=== PATIENT | female | born 1950 | race Caucasian/White ===

== ENCOUNTER 2017-07-08 01:21 | Inpatient (IN) | payer MEDICAID ==
[~2017-07-08] VITALS: Ht 152.4 cm; Wt 54.9 kg
[2017-07-08] VITALS (57 sets, daily range): BP systolic 71–95; BP diastolic 28–58
[~2017-07-08 01:21] MED LIST: ACET-1465 PO; AMLO5TAB4 PO; CHOL20004 PO; DARU800T PO; DOCU-100 PO; EMTR1TAB12 PO; FERR325T6 PO; FURO40TA5 PO; POLY15DR55 OP; RALT400T PO; RITO100T PO
[2017-07-08] MEDS ORDERED: ASPIRIN 81MG TABLET PO ONE (01:30)
[2017-07-08] MEDS ORDERED: NITROGLYCERIN OINT 1GM/INCH UDPKT TD ONE (01:30)
[2017-07-08] MEDS ORDERED: MAGNESIUM 2 G PREMIX 50 ML IV ONE (01:30)
[2017-07-08] MEDS ORDERED: IPRATROPIUM BROMIDE (0.02%) 0.5MG/2.5ML NEB HHN STA (01:30)
[2017-07-08] MEDS ORDERED: ALBUTEROL (0.083%) 2.5MG/3ML NEB HHN STA (01:30)
[2017-07-08] MEDS ORDERED: METHYLPREDNISOLONE SOD SUCC 125 MG/2 ML VIAL IV STA (01:30)
[2017-07-08] MEDS ORDERED: ALBUTEROL (0.083%) 2.5MG/3ML NEB HHN SCH ×2 (02:05→12:00)
[2017-07-08 02:51] LABS: BG BASE EXCESS -8.2 mmol/L (-2.0-2.0); BG CARBOXYHEMOGLOBIN 0.8 % (0.5-1.5); BG DEOXYHEMOGLOBIN 0.2 % (0.0-5.0); BG FRACTION INSPIRED OXYGEN 100; BG HCO3 ACT 16.1 mmol/L (22.0-26.0); BG METHEMOGLOBIN 0.6 % (0.0-1.5); BG OXYHEMOGLOBIN 98.4 % (94.0-97.0); BG PCO2 27.6 mmHg (35.0-45.0); BG PH 7.385 (7.350-7.450); BG PO2 233.7 mmHg (75.0-100.0); BG SAMPLE SITE RIGHT BRACHIAL; BG TOTAL HEMOGLOBIN 5.9 g/dL (12.0-18.0); BG VENT MODE MASK - NRB
[2017-07-08 03:58] LABS: INR 1.2; PROTHROMBIN TIME 12.7 sec (9.4-11.6)
[2017-07-08 03:59] LABS: MEAN CORPUSCULAR HEMOGLOBIN 29.1 pg (28.0-32.0); MEAN CORPUSCULAR VOLUME 91.4 fL (81.0-99.0); MEAN PLATELET VOLUME 9.4 fl (7.4-10.4); PLATELET 102 x1000/uL (130-400); RED BLOOD CELL COUNT 1.83 mill/uL (4.2-5.4); RED CELL DISTRIBUTION WIDTH 19.4 % (11.6-14.6)
[2017-07-08] MEDS ORDERED: HYDROCODONE/ACETAMINOPHEN 10/325MG TABLET PO ONE (04:00)
[2017-07-08] MEDS ORDERED: AZITHROMYCIN 500 MG in DEXT 5% WATER 250 ML IV ONE (04:00)
[2017-07-08] MEDS ORDERED: CEFTRIAXONE 1 G PREMIX 50 ML IV ONE (04:00)
[2017-07-08 04:05] LABS: HEMOGLOBIN. 5.3 g/dL (12.0-16.0)
[2017-07-08 04:06] LABS: HEMATOCRIT. 16.7 % (36.0-48.0)
[2017-07-08 04:19] LABS: PLATELET ESTIMATE SLIGHTLY DECREASED
[2017-07-08] MEDS ORDERED: SODIUM CHLORIDE 0.9% 1,000 ML IV ONE (04:31)
[2017-07-08 05:11] LABS: CHLORIDE 102 mEq/L (98-107)
[2017-07-08 05:14] LABS: ETHANOL BLOOD < 10 mg/dL
[2017-07-08] MEDS ORDERED: SODIUM CHLORIDE 0.9% 1000ML BAG (SEPSIS BOLUS) IV ONE (05:30)
[2017-07-08] MEDS ORDERED: MAGNESIUM/ALUMINUM HYDROXIDE/SIMETHICONE 30ML UDC PO PRN (07:45)
[2017-07-08] MEDS ORDERED: ACETAMINOPHEN 650MG/20.3ML UDC GT PRN (07:45)
[2017-07-08] MEDS ORDERED: ACETAMINOPHEN 650MG SUPP PR PRN (07:45)
[2017-07-08] MEDS ORDERED: GUAIFENESIN 200MG/10ML SUGAR FREE UDC PO PRN (07:45)
[2017-07-08] MEDS ORDERED: HYDROCODONE/ACETAMINOPHEN 5/325MG TABLET PO PRN (07:45)
[2017-07-08] MEDS ORDERED: ONDANSETRON HCL 4MG/2ML VIAL IV PRN (07:45)
[2017-07-08] MEDS ORDERED: CLONIDINE 0.1MG TABLET PO PRN (07:45)
[2017-07-08] MEDS: METHYLPREDNISOLONE SOD SUCC 40 MG/ML VIAL IV SCH ×2 (08:42→22:29)
[2017-07-08] MEDS: ACETAMINOPHEN 325MG TABLET PO PRN ×2 (08:43→09:45)
[2017-07-08] MEDS ORDERED: IPRATROPIUM/ALBUTEROL 0.5-3(2.5)MG/3ML NEB HHN ONE (08:45)
[2017-07-08] MEDS ORDERED: PANTOPRAZOLE SODIUM 40 MG/VIAL IV SCH (09:00)
[2017-07-08] MEDS ORDERED: DOCUSATE SODIUM 100MG CAPSULE PO PRN (09:00)
[2017-07-08] MEDS ORDERED: NA PHOS,M-B/NA PHOS,DI-BA ENEMA 118ML PR PRN (09:30)
[2017-07-08] MEDS: DIPHENHYDRAMINE 50MG/ML VIAL IV PRN (09:45)
[2017-07-08 10:02] LABS: CHLORIDE 102 mEq/L (98-107)
[2017-07-08 10:08] LABS: TOTAL IRON BINDING CAPACITY 344 ug/dL (250-450)
[2017-07-08 10:59] LABS: VITAMIN B12 SERUM 1474 pg/mL (211-911)
[2017-07-08] MEDS ORDERED: PROPOFOL 10MG/ML 100ML 100 ML IV PRN (11:00)
[2017-07-08] MEDS: FUROSEMIDE 40MG/4ML VIAL IVP SCH (11:15)
[2017-07-08 12:48] LABS: BG BASE EXCESS -28.6 mmol/L (-2.0-2.0); BG CARBOXYHEMOGLOBIN 0.6 % (0.5-1.5); BG DEOXYHEMOGLOBIN 2.8 % (0.0-5.0); BG FRACTION INSPIRED OXYGEN 65; BG HCO3 ACT 3.7 mmol/L (22.0-26.0); BG METHEMOGLOBIN 0.6 % (0.0-1.5); BG PCO2 23.9 mmHg (35.0-45.0); BG PH 6.808 (7.350-7.450); BG PO2 146.4 mmHg (75.0-100.0); BG SAMPLE SITE RIGHT BRACHIAL; BG TIDAL VOLUME(mL) 550 mL; BG TOTAL HEMOGLOBIN 7.4 g/dL (12.0-18.0); BG VENT MODE VENT - A/C; BG VENT RATE 14 set
[2017-07-08] MEDS ORDERED: SODIUM BICARBONATE 8.4% 1 MEQ/ML 50ML SYR IV ONE ×4 (13:14→17:30)
[2017-07-08] MEDS ORDERED: SODIUM BICARBONATE 8.4% 1 MEQ/ML 50ML SYR IV NR ×2 (13:30→20:15)
[2017-07-08] MEDS ORDERED: LEVOFLOXACIN 500MG PREMIX 100 ML IV SCH (14:00)
[2017-07-08] MEDS ORDERED: SODIUM BICARBONATE 100 MEQ in DEXTROSE 5% WATER 1,000 ML IV SCH (14:00)
[2017-07-08] MEDS: NOREPINEPHRINE 16 MG in DEXT 5% WATER 484 ML IV PRN (14:12)
[2017-07-08 14:45] LABS: BG BASE EXCESS -25.5 mmol/L (-2.0-2.0); BG CARBOXYHEMOGLOBIN 0.5 % (0.5-1.5); BG DEOXYHEMOGLOBIN 9.7 % (0.0-5.0); BG FRACTION INSPIRED OXYGEN 60; BG HCO3 ACT 5.6 mmol/L (22.0-26.0); BG METHEMOGLOBIN 0.5 % (0.0-1.5); BG OXYGEN SATURATION 90.2 % (92.0-98.5); BG OXYHEMOGLOBIN 89.3 % (94.0-97.0); BG PCO2 29.8 mmHg (35.0-45.0); BG PH 6.893 (7.350-7.450); BG SAMPLE SITE RIGHT BRACHIAL; BG TIDAL VOLUME(mL) 550 mL; BG TOTAL HEMOGLOBIN 7.4 g/dL (12.0-18.0); BG VENT MODE VENT - A/C; BG VENT RATE 14 set
[2017-07-08] MEDS ORDERED: ALBUMIN HUMAN 25GM/100ML (25%) IV NR ×2 (14:45→21:03)
[2017-07-08] MEDS ORDERED: ETOMIDATE 2MG/ML 10ML VIAL IV ONE (14:59)
[2017-07-08] MEDS ORDERED: NORMAL SALINE 0.9% 10 ML SYR ONE (14:59)
[2017-07-08] MEDS ORDERED: SUCCINYLCHOLINE CHLORIDE 200MG/10ML VIAL IV ONE (14:59)
[2017-07-08] MEDS: IPRATROPIUM/ALBUTEROL 0.5-3(2.5)MG/3ML NEB HHN SCH ×2 (15:30→22:13)
[2017-07-08 16:04] LABS: CHLORIDE 100 mEq/L (98-107)
[2017-07-08 16:08] LABS: AMMONIA 106 uMol/L (<32)
[2017-07-08 16:12] LABS: HDL CHOLESTEROL 37 mg/dL (40-59); LDL CHOLESTEROL 30 mg/dL (5-100)
[2017-07-08 16:13] LABS: CREATINE KINASE 213 IU/L (26-192)
[2017-07-08 16:16] LABS: CREATINE KINASE MB FRACTION 5.1 ng/mL (0.5-3.6)
[2017-07-08 18:36] LABS: BG BASE EXCESS -25.1 mmol/L (-2.0-2.0); BG CARBOXYHEMOGLOBIN 0.6 % (0.5-1.5); BG DEOXYHEMOGLOBIN 0.7 % (0.0-5.0); BG FRACTION INSPIRED OXYGEN 70; BG HCO3 ACT 5.9 mmol/L (22.0-26.0); BG METHEMOGLOBIN 0.5 % (0.0-1.5); BG OXYGEN SATURATION 99.3 % (92.0-98.5); BG OXYHEMOGLOBIN 98.2 % (94.0-97.0); BG PCO2 29.5 mmHg (35.0-45.0); BG PH 6.916 (7.350-7.450); BG PO2 205.6 mmHg (75.0-100.0); BG SAMPLE SITE RIGHT BRACHIAL; BG TIDAL VOLUME(mL) 550 mL; BG TOTAL HEMOGLOBIN 8.1 g/dL (12.0-18.0); BG VENT MODE VENT - A/C; BG VENT RATE 14 set
[2017-07-08] MEDS ORDERED: IPRATROPIUM/ALBUTEROL 0.5-3(2.5)MG/3ML NEB HHN PRN (20:00)
[2017-07-08] MEDS ORDERED: PHYTONADIONE 10MG/ML AMP IM NR (21:04)
[2017-07-08 21:40] LABS: BASOPHILS % 0.1 % (0.0-2.0); EOSINOPHILS % 0.1 % (0.0-5.0); HEMATOCRIT. 23.2 % (36.0-48.0); LYMPHOCYTES % 6.4 % (20.0-50.0); MEAN CORPUSCULAR HEMOGLOBIN 28.6 pg (28.0-32.0); MEAN CORPUSCULAR VOLUME 95.5 fL (81.0-99.0); MEAN PLATELET VOLUME 9.9 fl (7.4-10.4); MONOCYTES % 8.7 % (2.0-8.0); NEUTROPHILS % 84.7 % (40.0-76.0); PLATELET 134 x1000/uL (130-400); RED BLOOD CELL COUNT 2.43 mill/uL (4.2-5.4); RED CELL DISTRIBUTION WIDTH 18.6 % (11.6-14.6)
[2017-07-08 21:46] LABS: INR 1.8; PROTHROMBIN TIME 19.1 sec (9.4-11.6)
[2017-07-08 21:47] LABS: HEMOGLOBIN. 6.9 g/dL (12.0-16.0)
[2017-07-08 22:06] LABS: CHLORIDE 97 mEq/L (98-107)
[2017-07-08] MEDS: PIPERACILLIN/TAZ 2.25G PREMIX 50 ML IV SCH (22:27)
[2017-07-08] MEDS: SODIUM CHLORIDE 0.9% INJ 3ML FLUSH IVF SCH (22:29)
[2017-07-08] MEDS: PANTOPRAZOLE 80 MG in SODIUM CHLORIDE 0.9% 100 ML IV SCH (22:30)
[2017-07-08] MEDS ORDERED: SODIUM BICARBONATE 200 MEQ in DEXTROSE 5% WATER 1,000 ML IV SCH (22:30)
[2017-07-08] MEDS: OCTREOTIDE 1,000 MCG in SODIUM CHLORIDE 0.9% 98 ML IV SCH (22:31)
[2017-07-08 22:36] LABS: HEPATITIS B SURFACE ANTIGEN NEGATIVE
[2017-07-08] MEDS ORDERED: DOBUTAMINE 250MG PREMIX 250 ML IV PRN (22:45)
[2017-07-08] MEDS: VASOPRESSIN 10 UNIT in SODIUM CHLORIDE 0.9% 99.5 ML IV PRN ×2 (22:52→23:00)
[2017-07-08] MEDS: PHENYLEPHRINE 40 MG in DEXT 5% WATER 246 ML IV PRN (22:54)
[2017-07-08] MEDS ORDERED: VANCOMYCIN 1 G PREMIX 200 ML IV NR (23:00)
[2017-07-08 23:04] LABS: HEPATITIS B CORE AB IGM NEGATIVE
[2017-07-08 23:06] LABS: HEPATITIS A AB IGM NEGATIVE (NEGATIVE)
[2017-07-09] VITALS (96 sets, daily range): BP systolic 77–146; BP diastolic 21–70
[2017-07-09] LABS: HEMOGLOBIN 7.2 g/dL (12.0-16.0)
[2017-07-09] MEDS ORDERED: METHYLPREDNISOLONE SOD SUCC 40 MG/ML VIAL IV SCH
[2017-07-09] MEDS: METHYLPREDNISOLONE SOD SUCC 40 MG/ML VIAL IV SCH ×4 (00:16→23:48)
[2017-07-09 00:22] LABS: BG BASE EXCESS -24.2 mmol/L (-2.0-2.0); BG CARBOXYHEMOGLOBIN 0.2 % (0.5-1.5); BG DEOXYHEMOGLOBIN 3.4 % (0.0-5.0); BG FRACTION INSPIRED OXYGEN 70; BG HCO3 ACT 6.5 mmol/L (22.0-26.0); BG METHEMOGLOBIN 0.6 % (0.0-1.5); BG OXYGEN SATURATION 96.6 % (92.0-98.5); BG OXYHEMOGLOBIN 95.8 % (94.0-97.0); BG PCO2 31.2 mmHg (35.0-45.0); BG PH 6.939 (7.350-7.450); BG PO2 114.1 mmHg (75.0-100.0); BG SAMPLE SITE RIGHT RADIAL; BG TIDAL VOLUME(mL) 550 mL; BG TOTAL HEMOGLOBIN 8.5 g/dL (12.0-18.0); BG VENT MODE VENT - A/C; BG VENT RATE 14 set
[2017-07-09] MEDS: LACTULOSE 20G/30ML UDC PO SCH ×3 (02:00→18:33)
[2017-07-09] MEDS ORDERED: SODIUM BICARBONATE 8.4% 1 MEQ/ML 50ML SYR IV SCH (02:07)
[2017-07-09] MEDS: VASOPRESSIN 10 UNIT in SODIUM CHLORIDE 0.9% 99.5 ML IV PRN ×4 (02:27→20:35)
[2017-07-09] MEDS: PHENYLEPHRINE 40 MG in DEXT 5% WATER 246 ML IV PRN ×2 (03:27→07:28)
[2017-07-09] MEDS: NOREPINEPHRINE 16 MG in DEXT 5% WATER 484 ML IV PRN (03:53)
[2017-07-09] MEDS: PANTOPRAZOLE 80 MG in SODIUM CHLORIDE 0.9% 100 ML IV SCH ×2 (05:23→18:33)
[2017-07-09] MEDS: PIPERACILLIN/TAZ 2.25G PREMIX 50 ML IV SCH (05:24)
[2017-07-09] MEDS: SODIUM CHLORIDE 0.9% INJ 3ML FLUSH IVF SCH ×3 (05:25→20:38)
[2017-07-09 08:24] LABS: BG BASE EXCESS -17.7 mmol/L (-2.0-2.0); BG CARBOXYHEMOGLOBIN 0.3 % (0.5-1.5); BG DEOXYHEMOGLOBIN 2.1 % (0.0-5.0); BG FRACTION INSPIRED OXYGEN 70; BG HCO3 ACT 10.9 mmol/L (22.0-26.0); BG METHEMOGLOBIN 0.4 % (0.0-1.5); BG OXYGEN SATURATION 97.9 % (92.0-98.5); BG OXYHEMOGLOBIN 97.2 % (94.0-97.0); BG PCO2 36.4 mmHg (35.0-45.0); BG PH 7.095 (7.350-7.450); BG PO2 119.4 mmHg (75.0-100.0); BG SAMPLE SITE RIGHT RADIAL; BG TIDAL VOLUME(mL) 550 mL; BG TOTAL HEMOGLOBIN 9.4 g/dL (12.0-18.0); BG VENT MODE VENT - A/C; BG VENT RATE 14 set
[2017-07-09] MEDS: IPRATROPIUM/ALBUTEROL 0.5-3(2.5)MG/3ML NEB HHN SCH ×3 (08:40→16:10)
[2017-07-09] MEDS: FUROSEMIDE 40MG/4ML VIAL IVP SCH (09:41)
[2017-07-09 10:05] LABS: AMMONIA 41 uMol/L (<32)
[2017-07-09 10:06] LABS: PROTHROMBIN TIME 20.7 sec (9.4-11.6)
[2017-07-09] MEDS ORDERED: PHYTONADIONE 10MG/ML AMP SUBCUT NR (10:43)
[2017-07-09] MEDS ORDERED: VANCOMYCIN 500 MG PREMIX 100 ML IV SCH (11:00)
[2017-07-09] MEDS: SODIUM BICARBONATE 150 MEQ in DEXTROSE 5% WATER 1,000 ML IV SCH ×2 (11:42→23:47)
[2017-07-09 12:21] LABS: CHLORIDE 90 mEq/L (98-107)
[2017-07-09 12:24] LABS: PHOSPHORUS 8.9 mg/dL (2.5-4.9)
[2017-07-09 12:25] LABS: HEMATOCRIT. 28.8 % (36.0-48.0); HEMOGLOBIN. 8.7 g/dL (12.0-16.0); MEAN CORPUSCULAR HEMOGLOBIN 28.5 pg (28.0-32.0); MEAN CORPUSCULAR VOLUME 94.2 fL (81.0-99.0); MEAN PLATELET VOLUME 10.7 fl (7.4-10.4); PLATELET 94 x1000/uL (130-400); RED BLOOD CELL COUNT 3.06 mill/uL (4.2-5.4); RED CELL DISTRIBUTION WIDTH 17.8 % (11.6-14.6)
[2017-07-09 12:44] LABS: T4 FREE 1.15 ng/dL (0.76-1.46)
[2017-07-09] MEDS ORDERED: LEVOFLOXACIN 250MG PREMIX 50 ML IV SCH (14:00)
[2017-07-09 14:29] LABS: CREATINE KINASE MB FRACTION 44.5 ng/mL (0.5-3.6)
[2017-07-09] MEDS: OCTREOTIDE 1,000 MCG in SODIUM CHLORIDE 0.9% 98 ML IV SCH (18:35)
[2017-07-09] MEDS ORDERED: NOREPINEPHRINE 16 MG in DEXT 5% WATER 234 ML IV PRN (19:30)
[2017-07-09] MEDS: DIPHENHYDRAMINE 50MG/ML VIAL IV PRN ×2 (20:09→23:48)
[2017-07-09] MEDS: NOREPINEPHRINE 16 MG in DEXTROSE 5% WATER 250 ML IV PRN (20:10)
[2017-07-09 22:09] LABS: HEMOGLOBIN. 9.4 g/dL (12.0-16.0); MEAN CORPUSCULAR HEMOGLOBIN 28.2 pg (28.0-32.0); MEAN CORPUSCULAR VOLUME 90.2 fL (81.0-99.0); MEAN PLATELET VOLUME 10.7 fl (7.4-10.4); PLATELET 90 x1000/uL (130-400); RED BLOOD CELL COUNT 3.33 mill/uL (4.2-5.4); RED CELL DISTRIBUTION WIDTH 17.4 % (11.6-14.6)
[2017-07-09 22:13] LABS: CHLORIDE 88 mEq/L (98-107)
[2017-07-09 22:24] LABS: CREATINE KINASE MB FRACTION 61.1 ng/mL (0.5-3.6)
[2017-07-09 22:33] LABS: CREATINE KINASE 2662 IU/L (26-192)
[2017-07-09] MEDS ORDERED: DEXTROSE 50% WATER 50ML SYRINGE IV PRN (23:00)
[2017-07-09] MEDS ORDERED: ALBUMIN HUMAN 25GM/100ML (25%) IV NR (23:00)
[2017-07-09] MEDS ORDERED: INSULIN LISPRO 100 UNITS/ML SUBCUT SCH (23:20)
[2017-07-09 23:23] LABS: NUCLEATED RED BLOOD CELLS 1 /100 WBC; PLATELET ESTIMATE DECREASED
[2017-07-09] MEDS: BLOOD SUGAR DIAGNOSTIC STRIP TEST SCH (23:30)
[2017-07-09] MEDS: FENTANYL CITRATE/PF 500 MCG in SODIUM CHLORIDE 0.9% 40 ML IV PRN (23:48)
[2017-07-10] VITALS (96 sets, daily range): BP systolic 66–135; BP diastolic 23–95
[2017-07-10] MEDS: VASOPRESSIN 10 UNIT in SODIUM CHLORIDE 0.9% 99.5 ML IV PRN ×4 (00:35→14:44)
[2017-07-10] MEDS: NOREPINEPHRINE 16 MG in DEXTROSE 5% WATER 250 ML IV PRN (00:37)
[2017-07-10] MEDS: LACTULOSE 20G/30ML UDC PO SCH ×3 (02:42→18:07)
[2017-07-10] MEDS: PANTOPRAZOLE 80 MG in SODIUM CHLORIDE 0.9% 100 ML IV SCH ×2 (05:47→14:44)
[2017-07-10] MEDS: SODIUM CHLORIDE 0.9% INJ 3ML FLUSH IVF SCH ×3 (05:53→20:35)
[2017-07-10] MEDS: DIPHENHYDRAMINE 50MG/ML VIAL IV PRN (05:54)
[2017-07-10 06:33] LABS: HEMATOCRIT. 27.6 % (36.0-48.0); HEMOGLOBIN. 8.8 g/dL (12.0-16.0); MEAN CORPUSCULAR HEMOGLOBIN 28.5 pg (28.0-32.0); MEAN CORPUSCULAR VOLUME 89.6 fL (81.0-99.0); MEAN PLATELET VOLUME 10.6 fl (7.4-10.4); PLATELET 69 x1000/uL (130-400); RED BLOOD CELL COUNT 3.08 mill/uL (4.2-5.4); RED CELL DISTRIBUTION WIDTH 17.6 % (11.6-14.6)
[2017-07-10 07:00] LABS: CHLORIDE 88 mEq/L (98-107)
[2017-07-10 07:10] LABS: PHOSPHORUS 6.8 mg/dL (2.5-4.9)
[2017-07-10 07:13] LABS: CREATINE KINASE MB FRACTION 44.7 ng/mL (0.5-3.6)
[2017-07-10 07:23] LABS: CREATINE KINASE 2470 IU/L (26-192)
[2017-07-10] MEDS: IPRATROPIUM/ALBUTEROL 0.5-3(2.5)MG/3ML NEB HHN SCH ×4 (07:51→20:15)
[2017-07-10 08:02] LABS: PARTIAL THROMBOPLASTIN TIME 34.9 sec (23.4-31.0); PROTHROMBIN TIME 20.4 sec (9.4-11.6)
[2017-07-10] MEDS: INSULIN LISPRO 100 UNITS/ML SUBCUT SCH ×5 (08:20→21:33)
[2017-07-10] MEDS ORDERED: DEXTROSE 50% WATER 50ML SYRINGE IV PRN ×2 (08:30→11:15)
[2017-07-10] MEDS: BLOOD SUGAR DIAGNOSTIC STRIP TEST SCH ×4 (08:37→20:34)
[2017-07-10] MEDS ORDERED: LORAZEPAM 2MG/ML CPJ IM PRN (08:45)
[2017-07-10 08:53] LABS: NUCLEATED RED BLOOD CELLS 6 /100 WBC; PLATELET ESTIMATE DECREASED
[2017-07-10] MEDS: FUROSEMIDE 40MG/4ML VIAL IVP SCH (08:57)
[2017-07-10] MEDS ORDERED: MEROPENEM 1,000 MG in SODIUM CHLORIDE 0.9% 100 ML IV SCH (09:00)
[2017-07-10] MEDS: METHYLPREDNISOLONE SOD SUCC 40 MG/ML VIAL IV SCH ×2 (09:23→21:32)
[2017-07-10] MEDS: ACETAMINOPHEN 325MG TABLET PO PRN (09:23)
[2017-07-10 09:39] LABS: AMMONIA 54 uMol/L (<32)
[2017-07-10 10:27] LABS: BG CARBOXYHEMOGLOBIN 0.3 % (0.5-1.5); BG DEOXYHEMOGLOBIN 4.5 % (0.0-5.0); BG FRACTION INSPIRED OXYGEN 70; BG HCO3 ACT 22.2 mmol/L (22.0-26.0); BG METHEMOGLOBIN 0.2 % (0.0-1.5); BG PCO2 31.6 mmHg (35.0-45.0); BG PH 7.464 (7.350-7.450); BG PO2 80.6 mmHg (75.0-100.0); BG SAMPLE SITE RIGHT RADIAL; BG TIDAL VOLUME(mL) 550 mL; BG VENT MODE VENT - A/C; BG VENT RATE 14 set
[2017-07-10] MEDS: OCTREOTIDE 1,000 MCG in SODIUM CHLORIDE 0.9% 98 ML IV SCH (11:35)
[2017-07-10] MEDS: BUDESONIDE 0.5MG/2ML NEB HHN SCH ×2 (12:01→20:16)
[2017-07-10] MEDS ORDERED: BLOOD SUGAR DIAGNOSTIC STRIP TEST SCH ×2 (12:50)
[2017-07-10] MEDS ORDERED: METRONIDAZOLE 500 MG PREMIX 100 ML IV SCH (13:00)
[2017-07-10 13:37] LABS: PLATELET ESTIMATE SLIGHTLY DECREASED
[2017-07-10] MEDS ORDERED: VANCOMYCIN 750 MG PREMIX 150 ML IV SCH (14:00)
[2017-07-10] MEDS: MEROPENEM 500 MG in SODIUM CHLORIDE 0.9% 50 ML IV SCH (14:44)
[2017-07-10] MEDS: SODIUM BICARBONATE 150 MEQ in DEXTROSE 5% WATER 1,000 ML IV SCH (14:45)
[2017-07-10] MEDS: PROPOFOL 10MG/ML 100ML 100 ML IV PRN (15:02)
[2017-07-10] MEDS ORDERED: INSULIN GLARGINE UD 100 UNITS/ML SYR SUBCUT SCH (22:00)
[2017-07-11] VITALS (124 sets, daily range): BP systolic 43–146; BP diastolic 24–96
[2017-07-11] MEDS: PANTOPRAZOLE 80 MG in SODIUM CHLORIDE 0.9% 100 ML IV SCH ×3 (01:10→11:17)
[2017-07-11] MEDS: MEROPENEM 500 MG in SODIUM CHLORIDE 0.9% 50 ML IV SCH ×2 (01:10→15:46)
[2017-07-11] MEDS: VASOPRESSIN 10 UNIT in SODIUM CHLORIDE 0.9% 99.5 ML IV PRN ×4 (03:04→15:08)
[2017-07-11] MEDS: LACTULOSE 20G/30ML UDC PO SCH ×3 (03:05→18:59)
[2017-07-11 04:56] LABS: BG CARBOXYHEMOGLOBIN 0.3 % (0.5-1.5); BG DEOXYHEMOGLOBIN 7.3 % (0.0-5.0); BG FRACTION INSPIRED OXYGEN 70; BG HCO3 ACT 26.5 mmol/L (22.0-26.0); BG METHEMOGLOBIN 0.4 % (0.0-1.5); BG OXYGEN SATURATION 92.6 % (92.0-98.5); BG PCO2 32.4 mmHg (35.0-45.0); BG PH 7.531 (7.350-7.450); BG PO2 66.4 mmHg (75.0-100.0); BG SAMPLE SITE RIGHT BRACHIAL; BG TIDAL VOLUME(mL) 550 mL; BG TOTAL HEMOGLOBIN 10.4 g/dL (12.0-18.0); BG VENT MODE VENT - A/C; BG VENT RATE 14 set
[2017-07-11] MEDS: SODIUM CHLORIDE 0.9% INJ 3ML FLUSH IVF SCH ×3 (05:10→19:44)
[2017-07-11] MEDS: PROPOFOL 10MG/ML 100ML 100 ML IV PRN (05:25)
[2017-07-11 05:48] LABS: HEMATOCRIT. 28.8 % (36.0-48.0); HEMOGLOBIN. 9.7 g/dL (12.0-16.0); MEAN CORPUSCULAR HEMOGLOBIN 29.2 pg (28.0-32.0); MEAN CORPUSCULAR VOLUME 86.7 fL (81.0-99.0); MEAN PLATELET VOLUME 10.8 fl (7.4-10.4); PLATELET 67 x1000/uL (130-400); RED BLOOD CELL COUNT 3.32 mill/uL (4.2-5.4); RED CELL DISTRIBUTION WIDTH 17.5 % (11.6-14.6)
[2017-07-11 05:59] LABS: CHLORIDE 86 mEq/L (98-107)
[2017-07-11 06:10] LABS: AMMONIA 24 uMol/L (<32)
[2017-07-11 06:19] LABS: PHOSPHORUS 5.5 mg/dL (2.5-4.9)
[2017-07-11] MEDS: BLOOD SUGAR DIAGNOSTIC STRIP TEST SCH ×4 (07:50→19:44)
[2017-07-11] MEDS: IPRATROPIUM/ALBUTEROL 0.5-3(2.5)MG/3ML NEB HHN SCH ×4 (08:06→20:39)
[2017-07-11] MEDS: BUDESONIDE 0.5MG/2ML NEB HHN SCH ×2 (08:06→20:39)
[2017-07-11 09:06] LABS: ABSOLUTE LYMPHOCYTES 0.3 x10E3/uL (0.7-3.1); ABSOLUTE MONOCYTES 1.7 x10E3/uL (0.1-0.9); ABSOLUTE NEUTROPHILS 13.5 x10E3/uL (1.4-7.0); BASOPHILS 0 % (Not Estab.); HEMATOCRIT 28.3 % (34.0-46.6); HEMATOLOGY COMMENT Note: (.); HEMOGLOBIN 8.8 g/dL (11.1-15.9); IMMATURE GRANULOCYTES 0 % (Not Estab.); LYMPHOCYTES 2 % (Not Estab.); MEAN CORPUSCULAR HEMOGLOBIN 27.8 pg (26.6-33.0); MEAN CORPUSCULAR HGB CONC. 31.1 g/dL (31.5-35.7); MEAN CORPUSCULAR VOLUME 90 fL (79-97); MONOCYTES 11 % (Not Estab.); NEUTROPHILS 87 % (Not Estab.); NUCLEATED RBC 3 % (0 - 0); PLATELETS 81 x10E3/uL (150-379); RBC 3.16 x10E6/uL (3.77-5.28); RED CELL DISTRIBUTION WIDTH 16.6 % (12.3-15.4); WBC 15.6 x10E3/uL (3.4-10.8)
[2017-07-11 09:06] LABS: ALPHA FETOPROTEIN TUMOR MARKER 7.4 ng/mL (0.0-8.3)
[2017-07-11] MEDS: FUROSEMIDE 40MG/4ML VIAL IVP SCH (09:10)
[2017-07-11] MEDS: METHYLPREDNISOLONE SOD SUCC 40 MG/ML VIAL IV SCH ×2 (09:14→21:54)
[2017-07-11] MEDS: INSULIN LISPRO 100 UNITS/ML SUBCUT SCH ×4 (09:15→21:54)
[2017-07-11] MEDS ORDERED: LIDOCAINE HCL/PF 1% 10 MG/ML 5ML VIAL ONE (09:43)
[2017-07-11] MEDS: MIDAZOLAM HCL 50 MG in DEXTROSE 5% WATER 40 ML IV PRN ×2 (11:15→21:54)
[2017-07-11] MEDS: FENTANYL CITRATE/PF 500 MCG in SODIUM CHLORIDE 0.9% 40 ML IV PRN ×2 (11:16→21:53)
[2017-07-11 13:06] LABS: % CD 3 POS. LYMPHOCYTES 18.3 % (57.5-86.2); % CD 4 POS. LYMPHOCYTES 10.4 % (30.8-58.5); % CD 8 POS. LYMPH 7.3 % (12.0-35.5); ABSOLUTE CD 3 55 /uL (622-2402); ABSOLUTE CD 4 HELPER 31 /uL (359-1519); ABSOLUTE CD 8 SUPPRESSOR 22 /uL (109-897); CD4/CD8 RATIO 1.42 (0.92-3.72)
[2017-07-11] MEDS: NOREPINEPHRINE 16 MG in DEXTROSE 5% WATER 250 ML IV PRN (13:44)
[2017-07-11 19:15] LABS: PLATELET ESTIMATE DECREASED
[2017-07-11] MEDS: INSULIN GLARGINE UD 100 UNITS/ML SYR SUBCUT SCH (21:56)
[2017-07-11] MEDS: PANTOPRAZOLE SODIUM 40 MG/VIAL IV SCH (21:56)
[2017-07-12] VITALS (92 sets, daily range): BP systolic 74–127; BP diastolic 39–75
[2017-07-12] MEDS: MEROPENEM 500 MG in SODIUM CHLORIDE 0.9% 50 ML IV SCH ×2 (02:51→15:57)
[2017-07-12] MEDS: LACTULOSE 20G/30ML UDC PO SCH ×3 (02:51→18:58)
[2017-07-12] MEDS: SODIUM CHLORIDE 0.9% INJ 3ML FLUSH IVF SCH ×3 (05:05→23:20)
[2017-07-12] MEDS: BLOOD SUGAR DIAGNOSTIC STRIP TEST SCH ×4 (05:05→23:24)
[2017-07-12] MEDS: OCTREOTIDE 1,000 MCG in SODIUM CHLORIDE 0.9% 98 ML IV SCH (06:01)
[2017-07-12] MEDS: VASOPRESSIN 10 UNIT in SODIUM CHLORIDE 0.9% 99.5 ML IV PRN ×5 (06:02→21:22)
[2017-07-12 06:17] LABS: BASOPHILS % 0.1 % (0.0-2.0); HEMATOCRIT. 31.1 % (36.0-48.0); LYMPHOCYTES % 3.1 % (20.0-50.0); MEAN CORPUSCULAR HEMOGLOBIN 28.1 pg (28.0-32.0); MEAN CORPUSCULAR VOLUME 87.5 fL (81.0-99.0); MEAN PLATELET VOLUME 10.4 fl (7.4-10.4); MONOCYTES % 11.8 % (2.0-8.0); PLATELET 59 x1000/uL (130-400); RED BLOOD CELL COUNT 3.55 mill/uL (4.2-5.4); RED CELL DISTRIBUTION WIDTH 17.2 % (11.6-14.6)
[2017-07-12 06:28] LABS: PHOSPHORUS 5.6 mg/dL (2.5-4.9)
[2017-07-12] MEDS: FENTANYL CITRATE/PF 500 MCG in SODIUM CHLORIDE 0.9% 40 ML IV PRN ×2 (07:14→17:07)
[2017-07-12] MEDS: IPRATROPIUM/ALBUTEROL 0.5-3(2.5)MG/3ML NEB HHN SCH ×4 (07:22→20:12)
[2017-07-12] MEDS: BUDESONIDE 0.5MG/2ML NEB HHN SCH ×2 (07:23→20:12)
[2017-07-12 08:41] LABS: BG BASE EXCESS 1.6 mmol/L (-2.0-2.0); BG CARBOXYHEMOGLOBIN 0.4 % (0.5-1.5); BG DEOXYHEMOGLOBIN 4.2 % (0.0-5.0); BG FRACTION INSPIRED OXYGEN 75; BG METHEMOGLOBIN 0.4 % (0.0-1.5); BG OXYGEN SATURATION 95.8 % (92.0-98.5); BG PCO2 34.8 mmHg (35.0-45.0); BG PH 7.474 (7.350-7.450); BG PO2 81.6 mmHg (75.0-100.0); BG SAMPLE SITE RIGHT RADIAL; BG TIDAL VOLUME(mL) 550 mL; BG TOTAL HEMOGLOBIN 10.9 g/dL (12.0-18.0); BG VENT MODE VENT - A/C; BG VENT RATE 12 set
[2017-07-12] MEDS: FUROSEMIDE 40MG/4ML VIAL IVP SCH (08:41)
[2017-07-12] MEDS: PANTOPRAZOLE SODIUM 40 MG/VIAL IV SCH ×2 (08:41→21:21)
[2017-07-12] MEDS: METHYLPREDNISOLONE SOD SUCC 40 MG/ML VIAL IV SCH ×2 (08:41→21:21)
[2017-07-12] MEDS: INSULIN LISPRO 100 UNITS/ML SUBCUT SCH ×4 (08:42→23:28)
[2017-07-12] MEDS: MIDAZOLAM HCL 50 MG in DEXTROSE 5% WATER 40 ML IV PRN (11:29)
[2017-07-12] MEDS ORDERED: VANCOMYCIN 750 MG PREMIX 150 ML IV NR (14:00)
[2017-07-12 14:29] LABS: HEMATOCRIT 36.1 % (36.0-48.0); HEMOGLOBIN 11.4 g/dL (12.0-16.0)
[2017-07-12] MEDS: SULFAMETHOXAZOLE/TRIMETHOPRIM 320 MG in DEXT 5% WATER 500 ML IV SCH (17:05)
[2017-07-12] MEDS: NOREPINEPHRINE 16 MG in DEXTROSE 5% WATER 250 ML IV PRN (19:25)
[2017-07-12] MEDS ORDERED: BUDESONIDE 0.5MG/2ML NEB HHN SCH (20:00)
[2017-07-12] MEDS: DIPHENHYDRAMINE 50MG/ML VIAL IV PRN (21:21)
[2017-07-12] MEDS: INSULIN GLARGINE UD 100 UNITS/ML SYR SUBCUT SCH (23:29)
[2017-07-13] VITALS (92 sets, daily range): BP systolic 81–147; BP diastolic 41–84
[2017-07-13] MEDS: DIPHENHYDRAMINE 50MG/ML VIAL IV PRN (01:37)
[2017-07-13] MEDS: MEROPENEM 500 MG in SODIUM CHLORIDE 0.9% 50 ML IV SCH ×2 (01:37→14:19)
[2017-07-13] MEDS: VASOPRESSIN 10 UNIT in SODIUM CHLORIDE 0.9% 99.5 ML IV PRN ×6 (01:37→23:56)
[2017-07-13] MEDS: FENTANYL CITRATE/PF 500 MCG in SODIUM CHLORIDE 0.9% 40 ML IV PRN (01:44)
[2017-07-13] MEDS: MIDAZOLAM HCL 50 MG in DEXTROSE 5% WATER 40 ML IV PRN (01:51)
[2017-07-13] MEDS: LACTULOSE 20G/30ML UDC PO SCH ×2 (02:00→09:20)
[2017-07-13 05:59] LABS: HEMATOCRIT. 31.6 % (36.0-48.0); HEMOGLOBIN. 9.9 g/dL (12.0-16.0); MEAN CORPUSCULAR HEMOGLOBIN 28.5 pg (28.0-32.0); MEAN CORPUSCULAR VOLUME 90.6 fL (81.0-99.0); MEAN PLATELET VOLUME 10.8 fl (7.4-10.4); PLATELET 64 x1000/uL (130-400); RED BLOOD CELL COUNT 3.49 mill/uL (4.2-5.4); RED CELL DISTRIBUTION WIDTH 17.5 % (11.6-14.6)
[2017-07-13 06:03] LABS: PHOSPHORUS 6.7 mg/dL (2.5-4.9)
[2017-07-13] MEDS: BLOOD SUGAR DIAGNOSTIC STRIP TEST SCH ×4 (06:08→20:47)
[2017-07-13] MEDS: SODIUM CHLORIDE 0.9% INJ 3ML FLUSH IVF SCH ×3 (06:08→22:23)
[2017-07-13] MEDS: INSULIN LISPRO 100 UNITS/ML SUBCUT SCH ×4 (06:08→20:57)
[2017-07-13 07:17] LABS: PLATELET ESTIMATE DECREASED
[2017-07-13] MEDS: BUDESONIDE 0.5MG/2ML NEB HHN SCH ×2 (07:21→20:10)
[2017-07-13] MEDS: IPRATROPIUM/ALBUTEROL 0.5-3(2.5)MG/3ML NEB HHN SCH ×4 (07:21→20:10)
[2017-07-13 07:27] LABS: BG CARBOXYHEMOGLOBIN 0.8 % (0.5-1.5); BG DEOXYHEMOGLOBIN 5.3 % (0.0-5.0); BG HCO3 ACT 24.5 mmol/L (22.0-26.0); BG METHEMOGLOBIN 0.3 % (0.0-1.5); BG OXYGEN SATURATION 94.6 % (92.0-98.5); BG OXYHEMOGLOBIN 93.6 % (94.0-97.0); BG PCO2 49.4 mmHg (35.0-45.0); BG PH 7.313 (7.350-7.450); BG PO2 76.6 mmHg (75.0-100.0); BG SAMPLE SITE RIGHT BRACHIAL; BG TIDAL VOLUME(mL) 500 mL; BG TOTAL HEMOGLOBIN 10.8 g/dL (12.0-18.0); BG VENT MODE VENT - A/C; BG VENT RATE 12 set
[2017-07-13] MEDS: PANTOPRAZOLE SODIUM 40 MG/VIAL IV SCH ×2 (09:33→20:37)
[2017-07-13] MEDS: FUROSEMIDE 40MG/4ML VIAL IVP SCH (09:33)
[2017-07-13] MEDS: METHYLPREDNISOLONE SOD SUCC 40 MG/ML VIAL IV SCH ×2 (09:33→20:37)
[2017-07-13] MEDS ORDERED: FENTANYL CITRATE/PF 500 MCG in SODIUM CHLORIDE 0.9% 40 ML IV PRN (10:15)
[2017-07-13] MEDS: SULFAMETHOXAZOLE/TRIMETHOPRIM 320 MG in DEXT 5% WATER 500 ML IV SCH (16:34)
[2017-07-13 18:40] LABS: INR 1.5; PARTIAL THROMBOPLASTIN TIME 30.3 sec (23.4-31.0); PROTHROMBIN TIME 15.7 sec (9.4-11.6)
[2017-07-13] MEDS: LORAZEPAM 2MG/ML CPJ IV PRN (22:17)
[2017-07-13] MEDS: INSULIN GLARGINE UD 100 UNITS/ML SYR SUBCUT SCH (22:18)
[2017-07-14] VITALS (83 sets, daily range): BP systolic 94–143; BP diastolic 34–91
[2017-07-14] MEDS: MEROPENEM 500 MG in SODIUM CHLORIDE 0.9% 50 ML IV SCH ×2 (03:01→14:27)
[2017-07-14 05:31] LABS: HEMATOCRIT. 31.2 % (36.0-48.0); HEMOGLOBIN. 9.8 g/dL (12.0-16.0); MEAN CORPUSCULAR HEMOGLOBIN 28.3 pg (28.0-32.0); MEAN PLATELET VOLUME 10.4 fl (7.4-10.4); RED BLOOD CELL COUNT 3.46 mill/uL (4.2-5.4); RED CELL DISTRIBUTION WIDTH 17.5 % (11.6-14.6)
[2017-07-14 06:15] LABS: PLATELET 39 x1000/uL (130-400)
[2017-07-14] MEDS: SODIUM CHLORIDE 0.9% INJ 3ML FLUSH IVF SCH ×3 (06:19→22:27)
[2017-07-14 06:21] LABS: PHOSPHORUS 7.6 mg/dL (2.5-4.9)
[2017-07-14 06:57] LABS: NUCLEATED RED BLOOD CELLS 1 /100 WBC
[2017-07-14 06:58] LABS: PLATELET ESTIMATE MARKEDLY DECREASED
[2017-07-14] MEDS: BLOOD SUGAR DIAGNOSTIC STRIP TEST SCH ×4 (07:50→23:55)
[2017-07-14] MEDS: IPRATROPIUM/ALBUTEROL 0.5-3(2.5)MG/3ML NEB HHN SCH ×4 (08:19→20:30)
[2017-07-14] MEDS: BUDESONIDE 0.5MG/2ML NEB HHN SCH ×2 (08:19→20:30)
[2017-07-14 08:44] LABS: BG BASE EXCESS -8.5 mmol/L (-2.0-2.0); BG CARBOXYHEMOGLOBIN 0.4 % (0.5-1.5); BG DEOXYHEMOGLOBIN 16.6 % (0.0-5.0); BG FRACTION INSPIRED OXYGEN 70; BG HCO3 ACT 16.7 mmol/L (22.0-26.0); BG METHEMOGLOBIN 0.3 % (0.0-1.5); BG OXYGEN SATURATION 83.3 % (92.0-98.5); BG OXYHEMOGLOBIN 82.7 % (94.0-97.0); BG PCO2 33.4 mmHg (35.0-45.0); BG PH 7.318 (7.350-7.450); BG PO2 50.9 mmHg (75.0-100.0); BG SAMPLE SITE LEFT RADIAL; BG TIDAL VOLUME(mL) 500 mL; BG TOTAL HEMOGLOBIN 10.3 g/dL (12.0-18.0); BG VENT MODE VENT - A/C; BG VENT RATE 12 set
[2017-07-14] MEDS ORDERED: DEXTROSE 50% WATER 50ML SYRINGE IV PRN (09:00)
[2017-07-14] MEDS: PANTOPRAZOLE SODIUM 40 MG/VIAL IV SCH ×2 (09:17→22:21)
[2017-07-14] MEDS: METHYLPREDNISOLONE SOD SUCC 40 MG/ML VIAL IV SCH ×2 (09:17→22:22)
[2017-07-14] MEDS: FUROSEMIDE 40MG/4ML VIAL IVP SCH (09:17)
[2017-07-14] MEDS: INSULIN LISPRO 100 UNITS/ML SUBCUT SCH ×4 (09:18→23:54)
[2017-07-14] MEDS: LORAZEPAM 2MG/ML CPJ IV PRN ×2 (12:36→22:22)
[2017-07-14] MEDS ORDERED: BLOOD SUGAR DIAGNOSTIC STRIP TEST SCH ×2 (12:50)
[2017-07-14] MEDS ORDERED: VANCOMYCIN 750 MG PREMIX 150 ML IV SCH (14:00)
[2017-07-14] MEDS: SULFAMETHOXAZOLE/TRIMETHOPRIM 320 MG in DEXT 5% WATER 500 ML IV SCH (17:00)
[2017-07-14] MEDS ORDERED: INSULIN GLARGINE UD 100 UNITS/ML SYR SUBCUT SCH (22:00)
[2017-07-15] VITALS (79 sets, daily range): BP systolic 84–159; BP diastolic 50–85
[2017-07-15] MEDS: MEROPENEM 500 MG in SODIUM CHLORIDE 0.9% 50 ML IV SCH (02:45)
[2017-07-15 05:26] LABS: HEMATOCRIT. 29.2 % (36.0-48.0); HEMOGLOBIN. 9.2 g/dL (12.0-16.0); MEAN CORPUSCULAR HEMOGLOBIN 28.4 pg (28.0-32.0); MEAN CORPUSCULAR VOLUME 90.8 fL (81.0-99.0); MEAN PLATELET VOLUME 10.8 fl (7.4-10.4); PLATELET 53 x1000/uL (130-400); RED BLOOD CELL COUNT 3.22 mill/uL (4.2-5.4); RED CELL DISTRIBUTION WIDTH 18.1 % (11.6-14.6)
[2017-07-15 05:33] LABS: CHLORIDE 102 mEq/L (98-107)
[2017-07-15 05:38] LABS: PHOSPHORUS 6.3 mg/dL (2.5-4.9)
[2017-07-15] MEDS: INSULIN LISPRO 100 UNITS/ML SUBCUT SCH ×2 (05:57→14:00)
[2017-07-15] MEDS: SODIUM CHLORIDE 0.9% INJ 3ML FLUSH IVF SCH (05:57)
[2017-07-15] MEDS: BLOOD SUGAR DIAGNOSTIC STRIP TEST SCH ×2 (05:57→12:54)
[2017-07-15 06:28] LABS: NUCLEATED RED BLOOD CELLS 1 /100 WBC; PLATELET ESTIMATE MARKEDLY DECREASED
[2017-07-15] MEDS: IPRATROPIUM/ALBUTEROL 0.5-3(2.5)MG/3ML NEB HHN SCH ×2 (08:15→12:15)
[2017-07-15] MEDS: BUDESONIDE 0.5MG/2ML NEB HHN SCH (08:15)
[2017-07-15] MEDS: FUROSEMIDE 40MG/4ML VIAL IVP SCH (10:01)
[2017-07-15] MEDS: METHYLPREDNISOLONE SOD SUCC 40 MG/ML VIAL IV SCH (10:01)
[2017-07-15] MEDS: PANTOPRAZOLE SODIUM 40 MG/VIAL IV SCH (10:01)
[2017-07-15] MEDS ORDERED: MORPHINE SULFATE 250 MG in DEXT 5% WATER 240 ML IV PRN (15:30)
== END 2017-07-16 00:04 | disposition expired | DRG 890 ==
LOC: EDUNIT# 01:21 → ER 01:21 → 8WST 04:46 → EDBEDREQ 04:51 → ENRESERV 07:41 → CVICU 11:05 → 8WST 07-15 20:50
PROVIDERS: ADMIT Family Medicine; ATTEND Family Medicine
PROC: 5A1955Z Respiratory Ventilation, Greater than 96 Consecutive Hours (ICD-10-PCS; principal; 2017-07-08)
PROC: 30233L1 Transfusion of Nonautologous Fresh Plasma into Peripheral Vein, Percutaneous Approach (ICD-10-PCS; 2017-07-08)
PROC: 30233N1 Transfusion of Nonautologous Red Blood Cells into Peripheral Vein, Percutaneous Approach (ICD-10-PCS; 2017-07-08)
PROC: 30233K1 Transfusion of Nonautologous Frozen Plasma into Peripheral Vein, Percutaneous Approach (ICD-10-PCS; 2017-07-08)
PROC: 0BH17EZ Insertion of Endotracheal Airway into Trachea, Via Natural or Artificial Opening (ICD-10-PCS; 2017-07-08)
PROC: 06HY33Z Insertion of Infusion Device into Lower Vein, Percutaneous Approach (ICD-10-PCS; 2017-07-11)
PROC: B54BZZA Ultrasonography of Right Lower Extremity Veins, Guidance (ICD-10-PCS; 2017-07-11)
PROC: 4A00X4Z Measurement of Central Nervous Electrical Activity, External Approach (ICD-10-PCS; 2017-07-13)
DX: B20 Human immunodeficiency virus [HIV] disease (principal); J96.00 Acute respiratory failure, unspecified whether with hypoxia or hypercapnia; A41.9 Sepsis, unspecified organism; N17.0 Acute kidney failure with tubular necrosis; I63.9 Cerebral infarction, unspecified; I21.4 Non-ST elevation (NSTEMI) myocardial infarction; I95.9 Hypotension, unspecified; R57.1 Hypovolemic shock; R65.21 Severe sepsis with septic shock; G93.41 Metabolic encephalopathy; E43 Unspecified severe protein-calorie malnutrition; D68.9 Coagulation defect, unspecified; J44.0 Chronic obstructive pulmonary disease with (acute) lower respiratory infection; J15.212 Pneumonia due to Methicillin resistant Staphylococcus aureus; K92.2 Gastrointestinal hemorrhage, unspecified; I11.0 Hypertensive heart disease with heart failure; E87.2 Acidosis; E11.65 Type 2 diabetes mellitus with hyperglycemia; I50.32 Chronic diastolic (congestive) heart failure; J44.1 Chronic obstructive pulmonary disease with (acute) exacerbation; D50.9 Iron deficiency anemia, unspecified; D69.6 Thrombocytopenia, unspecified; E78.1 Pure hyperglyceridemia; E86.0 Dehydration; E86.1 Hypovolemia; E87.1 Hypo-osmolality and hyponatremia; E87.6 Hypokalemia; F10.10 Alcohol abuse, uncomplicated; I48.91 Unspecified atrial fibrillation; K70.30 Alcoholic cirrhosis of liver without ascites; N39.0 Urinary tract infection, site not specified; Z66 Do not resuscitate; Z51.5 Encounter for palliative care; E78.5 Hyperlipidemia, unspecified; R74.0 Nonspecific elevation of levels of transaminase and lactic acid dehydrogenase [LDH]; E66.01 Morbid (severe) obesity due to excess calories; F10.20 Alcohol dependence, uncomplicated; I48.92 Unspecified atrial flutter; M62.82 Rhabdomyolysis; Z95.0 Presence of cardiac pacemaker; Z79.899 Other long term (current) drug therapy; Z68.23 Body mass index [BMI] 23.0-23.9, adult
CPT/HCPCS: 31500; 36415; 36556; 36569; 36600; 70450; 71045; 76700; 76937; 80048; 80053; 80061; 80076; 80202; 82105; 82140; 82248; 82270; 82375; 82550; 82553; 82607; 82805; 82962; 83036; 83540; 83550; 83605; 83615; 83690; 83735; 83880; 84100; 84439; 84443; 84478; 84484; 85014; 85018; 85025; 85379; 85384; 85610; 85730; 86359; 86360; 86703; 86705; 86709; 86803; 86850; 86900; 86920; 86927; 87040; 87070; 87086; 87106; 87186; 87340; 87430; 87804; 93005; 93306; 93970; 94002; 94003; 94640; 96365; 96366; 96367; 99291; A4216; A6261; C1752; C9113; G0482; J0330; J0456; J0696; J1200; J1250; J1815; J1940; J1956; J2060; J2185; J2250; J2354; J2370; J2405; J2543; J2704; J2920; J2930; J3010; J3370; J3430; J3475; J3490; J7030; J7040; J7050; J7060; J7070; J7611; J7620; J7626; P9016; P9017; P9047; A4315